=== PATIENT | female | born 1975 | race Caucasian/White ===

== ENCOUNTER → 2016-08-23 | Outpatient (REF) | payer SELFPAY | LOC: LAB 07:48 | DX: J02.8 Acute pharyngitis due to other specified organisms (principal); Z20.818 Contact with and (suspected) exposure to other bacterial communicable diseases ==

== ENCOUNTER → 2019-07-22 | Outpatient (CLI) | payer BC | LOC: RAD 08:03 | DX: M79.672 Pain in left foot (principal) ==

== ENCOUNTER → 2021-02-01 | Day surgery (SDC) | payer BC | END | disposition home or self-care (01) | LOC: MSO 07:17 | DX: Z12.11 Encounter for screening for malignant neoplasm of colon (principal); D12.8 Benign neoplasm of rectum; Z79.899 Other long term (current) drug therapy; Z80.0 Family history of malignant neoplasm of digestive organs | CPT/HCPCS: 00811; J2704; J3010; J7120 ==